=== PATIENT | female | born 1990 | race African-American/Black ===

== ENCOUNTER 2022-11-26 03:38 | Inpatient (IN) | payer BC ==
[2022-11-21 13:46] VITALS: BMI 29.1
[2022-11-26] MEDS ORDERED: MIDAZOLAM HCL 2 MG/2 ML SINGLE DOSE VIAL ONE (09:28)
[2022-11-26] MEDS ORDERED: PROPOFOL 20 ML ONE (09:28)
[2022-11-26] MEDS ORDERED: LIDOCAINE HCL/PF 2% SDV 5ML VIAL ONE (09:28)
[2022-11-26] MEDS ORDERED: ROCURONIUM BROMIDE 50 MG/5 ML SYRINGE ONE (09:28)
[2022-11-26] MEDS ORDERED: SUCCINYLCHOLINE CHLORIDE 200 MG/10 ML SYRINGE ONE (09:28)
[2022-11-26] MEDS ORDERED: METHYLENE BLUE 50 MG/10 ML AMPUL ONE (10:13)
[2022-11-26] MEDS ORDERED: ceFAZolin 2 GRAM PREMIX BAG IVPB ONE (11:24)
[2022-11-26] MEDS ORDERED: DEXAMETHASONE SOD PHOSPHATE 4 MG/1 ML VIAL ONE (11:54)
[2022-11-26] MEDS ORDERED: ceFAZolin SODIUM 1 GM VIAL ONE (11:54)
[2022-11-26] MEDS ORDERED: ONDANSETRON 4 MG/2 ML VIAL IVPUSH PRN (14:51)
[2022-11-26] MEDS ORDERED: PROMETHAZINE HCL 25 MG/1 ML VIAL IVPB PRN (14:51)
[2022-11-26] MEDS ORDERED: ACETAMINOPHEN 1000 MG/100 ML BAG IVPB ONE (14:52)
[2022-11-26] MEDS ORDERED: ACETAMINOPHEN INJECTION 100 ML IVPB ONE (15:13)
[2022-11-26] MEDS: LACTATED RINGERS SOLUTION 1,000 ML IV SCH (16:30)
[2022-11-26] MEDS ORDERED: ACETAMINOPHEN 325 MG TABLET (FP) PO PRN (22:34)
[2022-11-26] MEDS ORDERED: oxyCODONE HCL 5 MG TABLET PO PRN (22:34)
[2022-11-26] MEDS: IBUPROFEN 600 MG TABLET (FP) PO PRN (22:42)
[2022-11-27] MEDS: LACTATED RINGERS SOLUTION 1,000 ML IV SCH (02:08)
[2022-11-27 07:24] LABS: BASO % 0.1 % (0-2.0); HEMATOCRIT 25.9 % (32.4-45.2); LYMPH % 6.8 % (8-40); MCH 30.6 pg (25.7-33.7); MCHC 34.9 g/dl (32.0-36.0); MEAN CELL VOLUME 87.8 fl (80-96); MEAN PLT VOLUME 8.3 fl (7.5-11.1); MONO % 9.7 % (3.8-10.2); NEUT % 83.4 % (42.8-82.8); PLATELET COUNT 268 10^3/uL (134-434); RBC 2.96 M/mm3 (3.60-5.2); RDW 13.5 % (11.6-15.6)
[2022-11-27 07:57] LABS: CALCIUM 7.7 mg/dL (8.5-10.1); POTASSIUM 3.7 mmol/L (3.5-5.1)
[2022-11-27 07:59] LABS: BLOOD UREA NITROGEN 6.2 mg/dL (7-18)
[2022-11-27 08:01] LABS: CREATININE 0.3 mg/dL (0.55-1.3)
[2022-11-27 08:04] LABS: BILIRUBIN,TOTAL 0.5 mg/dL (0.2-1)
[2022-11-27 08:08] LABS: ALBUMIN 2.1 g/dl (3.4-5.0); TOT PROT 4.2 g/dl (6.4-8.2)
[2022-11-27] MEDS: IBUPROFEN 600 MG TABLET (FP) PO PRN ×3 (08:32→21:21)
[2022-11-27] MEDS: FERROUS SO4 325 MG TABLET (FP) PO SCH (21:11)
[2022-11-27] MEDS: DOCUSATE SODIUM 100 MG CAPSULE (FP) PO PRN (21:12)
[2022-11-27] MEDS: ASCORBIC ACID 500 MG TABLET (FP) PO SCH (21:12)
[2022-11-28] MEDS: IBUPROFEN 600 MG TABLET (FP) PO PRN ×3 (08:37→21:21)
[2022-11-28] MEDS: FERROUS SO4 325 MG TABLET (FP) PO SCH ×2 (09:46→21:20)
[2022-11-28] MEDS: ASCORBIC ACID 500 MG TABLET (FP) PO SCH ×2 (09:47→21:21)
[2022-11-28] MEDS: DOCUSATE SODIUM 100 MG CAPSULE (FP) PO PRN (21:20)
[2022-11-29 06:14] LABS: BASO % 0.5 % (0-2.0); EOS % 0.6 % (0-4.5); HEMOGLOBIN 9.2 GM/dL (10.7-15.3); LYMPH % 23.8 % (8-40); MCH 30.1 pg (25.7-33.7); MCHC 34.1 g/dl (32.0-36.0); MEAN CELL VOLUME 88.2 fl (80-96); MEAN PLT VOLUME 8.1 fl (7.5-11.1); MONO % 13.4 % (3.8-10.2); NEUT % 61.7 % (42.8-82.8); PLATELET COUNT 283 10^3/uL (134-434); RBC 3.07 M/mm3 (3.60-5.2); RDW 13.7 % (11.6-15.6); WHITE BLOOD COUNT 8.7 K/mm3 (4.0-10.0)
[2022-11-29] MEDS: IBUPROFEN 600 MG TABLET (FP) PO PRN ×2 (09:50→16:45)
[2022-11-29] MEDS: FERROUS SO4 325 MG TABLET (FP) PO SCH (09:50)
[2022-11-29] MEDS: ASCORBIC ACID 500 MG TABLET (FP) PO SCH (09:50)
[2022-11-29 12:44] VITALS: BP 120/73; PULSE 100; RESP 20; TEMP 98.4
== END 2022-11-29 17:50 | disposition home or self-care (01) | DRG 743 ==
LOC: J2C 03:38 → J3W 17:13
PROVIDERS: ADMIT Obstetrics & Gynecology Maternal & Fetal Medicine; ATTEND Obstetrics & Gynecology Maternal & Fetal Medicine
PROC: 0UB90ZZ Excision of Uterus, Open Approach (ICD-10-PCS; principal; 2022-11-26 10:30)
DX: D25.9 Leiomyoma of uterus, unspecified (principal); R19.00 Intra-abdominal and pelvic swelling, mass and lump, unspecified site
CPT/HCPCS: 36415; 80053; 81025; 85025; 86850; 86900; 86901; 88305-TC; 94010; 94760; Q9968